=== PATIENT | male | born 1965 | race Caucasian/White ===

== ENCOUNTER 2017-01-17 07:14 | Outpatient (CLI) | payer OTHER ==
[2017-01-17 11:19] LABS: BASOPHILS % (AUTO) 0.3 %; EOSINOPHILS # (AUTO) 0.2 10^3/uL (0.0-0.7); EOSINOPHILS % (AUTO) 2.4 %; HCT - HEMATOCRIT 46.7 % (42.0-52.0); HGB - HEMOGLOBIN 16.3 g/dL (14.0-18.0); LYMPHOCYTES # (AUTO) 2.3 10^3/uL (1.5-3.5); MEAN CORPUSCULAR HEMOGLOBIN 34.4 pg (27.0-31.0); MEAN CORPUSCULAR HGB CONC 34.9 g/dL (32.0-36.0); MEAN CORPUSCULAR VOLUME 98.8 fL (80.0-94.0); MEAN PLATELET VOLUME 9.6 fL (7.4-11.4); MONOCYTES # (AUTO) 0.7 10^3/uL (0.0-1.0); MONOCYTES % (AUTO) 8.4 %; NEUTROPHILS # (AUTO) 5.2 10^3/uL (1.5-6.6); NEUTROPHILS % (AUTO) 61.9 %; NUCLEATED RED BLOOD CELLS AUTO 0.2 /100WBC; RED BLOOD COUNT 4.73 10^6/uL (4.70-6.10); RED CELL DISTRIBUTION WIDTH 12.5 % (12.0-15.0); UNCORRECTED WHITE BLOOD COUNT 8.5 x10^3/uL; WHITE BLOOD COUNT 8.5 x10^3/uL (4.8-10.8)
[2017-01-17 11:39] LABS: HEMOGLOBIN A1C 0.67 g/dL
[2017-01-17 11:40] LABS: ALBUMIN/GLOBULIN RATIO 1.8 (1.0-2.2); BILIRUBIN,TOTAL 0.9 mg/dL (0.2-1.0); BUN - BLOOD UREA NITROGEN 10 mg/dL (6-20); CALCIUM 9.1 mg/dL (8.5-10.3); CARBON DIOXIDE - CO2 27 mmol/L (21-32); CHLORIDE 101 mmol/L (101-111); CHOL/HDL RATIO 3.6 (<5.0); CHOLESTEROL 167 mg/dL; CREATININE 0.7 mg/dL (0.6-1.2); GFR - MDRD 118 (>89); GLUCOSE 141 mg/dL (70-100); HDL CHOLESTEROL 46 mg/dL; LDL/HDL RATIO 2.1 (<3.6); POTASSIUM 3.8 mmol/L (3.5-5.0); SODIUM 136 mmol/L (135-145); TOTAL PROTEIN 7.1 g/dL (6.7-8.2); TRIGLYCERIDES 113 mg/dL; VLDL CHOLESTEROL 23 mg/dL
== END 2017-01-17 07:15 | disposition home or self-care (01) ==
LOC: LAB.F 07:14
PROVIDERS: ATTEND Physician Assistant Medical
DX: Z12.5 Encounter for screening for malignant neoplasm of prostate (principal); M10.9 Gout, unspecified; E11.9 Type 2 diabetes mellitus without complications; E78.5 Hyperlipidemia, unspecified; I10 Essential (primary) hypertension; Z72.89 Other problems related to lifestyle; Z79.899 Other long term (current) drug therapy
CPT/HCPCS: 36415; 80053; 80061; 83036; 84153; 84443; 85025; 86803

== ENCOUNTER 2017-04-10 10:52 | Day surgery (SDC) | payer OTHER ==
[2017-04-10] MEDS ORDERED: LACTATED RINGERS 1,000 ML IV ONE (11:30)
[2017-04-10] MEDS ORDERED: MIDAZOLAM 2 MG/2 ML VIAL IVP ONE (12:07)
[2017-04-10] MEDS ORDERED: fentaNYL 100 MCG/2 ML VIAL IVP ONE (12:07)
[2017-04-10 13:38] VITALS: BP 119/75
== END 2017-04-10 10:53 | disposition home or self-care (01) ==
LOC: SDS 10:52
PROVIDERS: ATTEND Surgery
PROC: 0DBE8ZX Excision of Large Intestine, Via Natural or Artificial Opening Endoscopic, Diagnostic (ICD-10-PCS; 2017-04-10)
PROC: 3E0H8GC Introduction of Other Therapeutic Substance into Lower GI, Via Natural or Artificial Opening Endoscopic (ICD-10-PCS; 2017-04-10)
PROC: 0DBE8ZX Excision of Large Intestine, Via Natural or Artificial Opening Endoscopic, Diagnostic (ICD-10-PCS; principal; 2017-04-10 12:00)
DX: Z12.11 Encounter for screening for malignant neoplasm of colon (principal); D12.4 Benign neoplasm of descending colon; D12.3 Benign neoplasm of transverse colon; D12.2 Benign neoplasm of ascending colon; K62.1 Rectal polyp; K64.8 Other hemorrhoids; Z79.82 Long term (current) use of aspirin; I10 Essential (primary) hypertension; F17.200 Nicotine dependence, unspecified, uncomplicated
CPT/HCPCS: 45380; 45381; 45385; J7120

== ENCOUNTER 2018-08-23 07:09 | Outpatient (CLI) | payer OTHER ==
[2018-08-23 11:10] LABS: BASOPHILS % (AUTO) 0.5 %; EOSINOPHILS # (AUTO) 0.2 10^3/uL (0.0-0.7); EOSINOPHILS % (AUTO) 3.5 %; HGB - HEMOGLOBIN 15.3 g/dL (14.0-18.0); LYMPHOCYTES # (AUTO) 1.8 10^3/uL (1.5-3.5); MEAN CORPUSCULAR HEMOGLOBIN 33.8 pg (27.0-31.0); MEAN CORPUSCULAR HGB CONC 34.1 g/dL (32.0-36.0); MEAN CORPUSCULAR VOLUME 99.2 fL (80.0-94.0); MEAN PLATELET VOLUME 9.4 fL (7.4-11.4); MONOCYTES # (AUTO) 0.6 10^3/uL (0.0-1.0); MONOCYTES % (AUTO) 9.9 %; NEUTROPHILS # (AUTO) 3.2 10^3/uL (1.5-6.6); NEUTROPHILS % (AUTO) 55.1 %; PLT - PLATELET COUNT 158 10^3/uL (130-450); RED BLOOD COUNT 4.53 10^6/uL (4.70-6.10); RED CELL DISTRIBUTION WIDTH 13.1 % (12.0-15.0); WHITE BLOOD COUNT 5.8 x10^3/uL (4.8-10.8)
[2018-08-23 11:40] LABS: ALBUMIN/GLOBULIN RATIO 1.4 (1.0-2.2); ALKALINE PHOSPHATASE 45 IU/L (42-121); ALT ALANINE AMINOTRANSFERASE 39 IU/L (10-60); AST ASPARTATE AMINOTRANSFERASE 22 IU/L (10-42); BILIRUBIN,TOTAL 0.6 mg/dL (0.2-1.0); BUN - BLOOD UREA NITROGEN 12 mg/dL (6-20); CARBON DIOXIDE - CO2 28 mmol/L (21-32); CHLORIDE 105 mmol/L (101-111); CHOL/HDL RATIO 3.7 (<5.0); CHOLESTEROL 154 mg/dL; CREATININE 0.6 mg/dL (0.6-1.2); GFR - MDRD 140 (>89); GLUCOSE 133 mg/dL (70-100); HDL CHOLESTEROL 42 mg/dL; LDL CHOLESTEROL,CALCULATED 97 mg/dL; LDL/HDL RATIO 2.3 (<3.6); SODIUM 141 mmol/L (135-145); TOTAL PROTEIN 6.8 g/dL (6.7-8.2); VLDL CHOLESTEROL 15 mg/dL
[2018-08-23 11:42] LABS: PSA TOTAL 0.545 ng/mL (0.000-2.000)
[2018-08-23 11:45] LABS: FREE T3 3.64 pg/mL (2.5-3.9)
[2018-08-23 11:46] LABS: THYROID STIMULATING HORMONE 1.79 uIU/mL (0.34-5.60)
[2018-08-23 11:48] LABS: FREE T4 (FREE THYROXINE) 0.81 ng/dL (0.58-1.64)
[2018-08-23 12:01] LABS: CRP - C-REACTIVE PROTEIN < 1.0 mg/dL (0-1.0)
[2018-08-23 12:05] LABS: HB2 TOTAL 16.8 g/dL; HEMOGLOBIN A1C 0.64 g/dL; HEMOGLOBIN A1C % 5.6 % (4.6-6.2)
[2018-08-24 10:06] LABS: HOMOCYSTEINE 8.7 umol/L (<11.4)
== END 2018-08-23 07:10 | disposition home or self-care (01) ==
LOC: LAB.F 07:09
PROVIDERS: ATTEND Naturopath
DX: Z00.01 Encounter for general adult medical examination with abnormal findings (principal); Z12.5 Encounter for screening for malignant neoplasm of prostate; Z13.6 Encounter for screening for cardiovascular disorders; Z13.21 Encounter for screening for nutritional disorder; Z13.0 Encounter for screening for diseases of the blood and blood-forming organs and certain disorders involving the immune mechanism; Z13.220 Encounter for screening for lipoid disorders; Z13.1 Encounter for screening for diabetes mellitus; Z13.228 Encounter for screening for other metabolic disorders; Z13.29 Encounter for screening for other suspected endocrine disorder
CPT/HCPCS: 36415; 80053; 80061; 82306; 82670; 83036; 83090; 83721; 84153; 84403; 84439; 84443; 84481; 85025; 86140

== ENCOUNTER 2018-12-29 07:32 | Emergency (ER) | payer OTHER ==
--- NOTE | 2018-12-29 07:44 | ED Physician Documentation ---
PD HPI HEENT - Stated complaint Stated Complaint: TOOTH PX/SORE THROAT - History obtained from History obtained from: Patient - History of Present Illness Timing - onset: Yesterday Timing - details: Abrupt onset, Still present (worse today) Location: Tooth (left lower first molar area) Associated symptoms: Facial swelling (left mandible area). No: Fever Similar symptoms before: Has not had sx before Review of Systems Constitutional: denies: Fever, Chills, Myalgias Nose: denies: Rhinorrhea / runny nose, Congestion Throat: reports: Dental pain / toothache. denies: Sore throat PD PAST MEDICAL HISTORY - Past Medical History Cardiovascular: Hypertension, High cholesterol GI: GERD, GI bleed, Colon polyps, Hemorrhoids : Nocturia Musculoskeletal: Gout - Past Surgical History Past Surgical History: No - Present Medications Home Medications: Ambulatory Orders Medication Instructions Recorded Confirmed Allopurinol 100 mg PO ONCEDAILY 12/21/12 04/10/17 Amlodipine Besylate 10 mg PO DAILY 12/21/12 04/10/17 Carvedilol [Coreg] 12.5 mg PO BID 12/21/12 04/10/17 Hctz 25 mg PO DAILY 12/21/12 04/10/17 Losartan [Cozaar] 100 mg PO DAILY 12/21/12 04/10/17 Aspirin 81 mg PO 04/10/17 Clindamycin HCl [Clindamycin 300MG 300 mg PO TID #21 capsule 12/29/18 CAP] Naproxen 500 mg PO BID #20 tablet 12/29/18 Oxycodone HCl/Acetaminophen 1 each PO Q6H PRN #18 tablet 12/29/18 [Percocet 5-325 mg Tablet] - Allergies Allergies/Adverse Reactions: Allergies Allergy/AdvReac Type Severity Reaction Status Date / Time lisinopril AdvReac Intermediate Respiratory Verified 12/29/18 07:48 - Social History Does the pt smoke?: Yes Smoking Status: Current every day smoker Does the pt drink ETOH?: Yes Does the pt have substance abuse?: No - Immunizations Immunizations are current?: Yes - POLST Patient has POLST: No PD ED PE NORMAL - Vitals Vital signs reviewed: Yes - General General: Alert and oriented X 3, No acute distress, Well developed/nourished - HEENT HEENT: Pharynx benign. No: Dentition benign (decay left lower teeth. Gum with swelling and tenderness. No fluctuance. ) - Neck Neck: Supple, no meningeal sign, No adenopathy - Cardiac Cardiac: RRR, No murmur - Respiratory Respiratory: Clear bilaterally Results - Vitals Vitals: Vital Signs - 24 hr 12/29/18 07:46 Temperature 37 C Heart Rate 91 Respiratory 20 Rate Blood Pressure 174/114 H O2 Saturation 97 Oxygen O2 Source Room air PD MEDICAL DECISION MAKING - ED course Complexity details: considered differential, d/w patient Departure - Departure Disposition: Home, Self Care Clinical Impression: Dental infection Condition: Stable Record reviewed to determine appropriate education?: Yes Instructions: ED Abscess Dental Prescriptions: Clindamycin HCl [Clindamycin 300MG CAP] 300 mg PO TID #21 capsule Naproxen 500 mg PO BID #20 tablet Oxycodone HCl/Acetaminophen [Percocet 5-325 mg Tablet] 1 each PO Q6H PRN #18 tablet PRN Reason: pain Comments: Rinse with antiseptic mouthwash 2-3 times a day. Use of anti-inflammatories such as naproxen twice daily for the next week to 10 days. Add Tylenol or Percocet if needed for pain. Clindamycin antibiotic as directed for a week. Follow-up with your dentist next week. Discharge Date/Time: 12/29/18 08:06
[2018-12-29 07:48] VITALS: BP 174/114
[2018-12-29] MEDS ORDERED: CLINDAMYCIN 150 MG CAPSULE PO STA (07:54)
[2018-12-29] MEDS ORDERED: oxyCODONE 5 MG TABLET PO STA (07:54)
== END 2018-12-29 08:06 | disposition home or self-care (01) ==
LOC: ED 07:32
DX: K04.7 Periapical abscess without sinus (principal); I10 Essential (primary) hypertension; F17.200 Nicotine dependence, unspecified, uncomplicated
CPT/HCPCS: 99283; 99284; A9270

== ENCOUNTER 2019-01-01 09:22 | Emergency (ER) | payer OTHER ==
[2019-01-01] MEDS ORDERED: SODIUM CHLORIDE 0.9% 1,000 ML IV ONE (10:27)
[2019-01-01] MEDS ORDERED: DEXAMETHASONE 10 MG/ML VIAL IVP STA (10:27)
[2019-01-01] MEDS ORDERED: cefTRIAXone 1 GM VIAL IVP STA (10:27)
[2019-01-01] MEDS ORDERED: IOVERSOL 320 100 ML VIAL IVP ONE ×2 (11:05→11:39)
[2019-01-01 11:12] LABS: ALBUMIN 3.8 g/dL (3.2-5.5); ALBUMIN/GLOBULIN RATIO 1.2 (1.0-2.2); BILIRUBIN,TOTAL 0.8 mg/dL (0.2-1.0); CALCIUM 8.7 mg/dL (8.5-10.3); CREATININE 0.7 mg/dL (0.6-1.2); TOTAL PROTEIN 6.9 g/dL (6.7-8.2)
--- NOTE | 2019-01-01 12:24 | CT Report ---
Reason: dental infection left lower; swelling submand Procedure Date: 01/01/2019 Accession Number: [id number] / [id number] Procedure: CT - SOFT TISSUE NECK W CPT Code: FULL RESULT: EXAM: CT SOFT TISSUE NECK WITH CONTRAST. EXAM DATE: 01/01/2019 11:38 AM. HISTORY: Dental infection. Submandibular space swelling. COMPARISONS: None. TECHNIQUE: Routine soft tissue neck CT protocol. Reconstructions: Coronal and sagittal. IV contrast: 80 mL Optiray 320. In accordance with CT protocol optimization, one or more of the following dose reduction techniques were utilized for this exam: automated exposure control, adjustment of mA and/or KV based on patient size, or use of iterative reconstructive technique. FINDINGS: In the left upper neck and lower face anterior to the left submandibular space there is generally superficial stranding, swelling and edema with a few mildly prominent intermixed lymph nodes. There is no evidence for focal abscess-like fluid collection. The submandibular glands are symmetric and unremarkable. Unremarkable appearing parotid glands and thyroid gland. Subtle asymmetric soft tissue fullness in the region of the left lateral oropharynx, in the region of the left palatine tonsil. This is nonspecific. An acute inflammatory process is not clearly ruled out. There is no evidence for focal enhancing tumor mass in this location. No other focal enhancing mass or acute inflammatory process of the pharynx or larynx. Asymmetric hypopharynx, aerated on the right but not aerated on the left. Significance is uncertain but doubtful. No evidence for asymmetric focal enhancing mass. Unremarkable appearance of the adjacent larynx. Symmetric vocal cords. Normal epiglottis. No retropharyngeal or parapharyngeal fluid collection. No acute paranasal sinus or mastoid fluid opacification. No focal orbital mass or acute soft tissue inflammatory orbital process. Clear lung apices as far as partially visualized. Mild to moderate chronic multilevel hypertrophic degenerative cervical spinal spondylosis. Cervical carotid artery bifurcation atherosclerotic calcifications. Patent bilateral internal jugular veins. IMPRESSION: 1. Anterior to the left and submandibular space there is superficial swelling, stranding and edema suggestive of cellulitis without evidence for abscess. 2. Mild cervical lymph node prominence, likely reactive. 3. Mild asymmetric fullness of the soft tissues in the region of the left palatine tonsil. This may be incidental anatomic variation. Acute left lateral pharyngitis/tonsillitis is less likely but not entirely ruled out. 4. Unremarkable appearance of the major salivary glands and thyroid gland. 5. Nonspecific asymmetry of the hypopharynx, effaced on the left and aerated on the right but without clearly defined accompanying inflammatory process or mass. This may be incidental anatomic variation. RADIA
--- NOTE | 2019-01-01 13:14 | ED Physician Documentation ---
PD HPI HEENT - Stated complaint Stated Complaint: L SIDE MOUTH PX - Chief complaint Chief Complaint: Heent - History obtained from History obtained from: Patient - History of Present Illness Timing - onset: How many days ago (few) Timing - duration: Days (few) Timing - details: Gradual onset, Still present (he had dental pain and swelling and then swelling left mandible and submandibular area and feeling toward back of throat. On abx for 2 days with only mild improvement.) Location: Throat, Tooth (saw dentist yesterday and being referred to oral surgeon for root canal.) Associated symptoms: Swollen nodes, Facial swelling. No: Fever, Unable to swallow (but feels some fullness with swallowing, so is only having liquids/soft food for past 2-3 days.), Headache Recently seen: Clinic (dentist yesterday with referral to oral surgeon for root canal.), Emergency Dept (2 days ago with Dx dental infection and facial cellulitis.) Review of Systems Constitutional: denies: Fever, Chills, Myalgias Nose: denies: Rhinorrhea / runny nose, Congestion Throat: reports: Dental pain / toothache, Sore throat Cardiac: denies: Chest pain / pressure Respiratory: denies: Dyspnea, Cough GI: denies: Nausea, Vomiting, Diarrhea Skin: denies: Rash PD PAST MEDICAL HISTORY - Past Medical History Cardiovascular: Hypertension, High cholesterol GI: GERD, GI bleed, Colon polyps, Hemorrhoids : Nocturia Musculoskeletal: Gout - Past Surgical History Past Surgical History: No - Present Medications Home Medications: Ambulatory Orders Medication Instructions Recorded Confirmed Allopurinol 100 mg PO ONCEDAILY 12/21/12 04/10/17 Amlodipine Besylate 10 mg PO DAILY 12/21/12 04/10/17 Carvedilol [Coreg] 12.5 mg PO BID 12/21/12 04/10/17 Hctz 25 mg PO DAILY 12/21/12 04/10/17 Losartan [Cozaar] 100 mg PO DAILY 12/21/12 04/10/17 Aspirin 81 mg PO 04/10/17 Clindamycin HCl [Clindamycin 300MG 300 mg PO TID #21 capsule 12/29/18 CAP] Naproxen 500 mg PO BID #20 tablet 12/29/18 Oxycodone HCl/Acetaminophen 1 each PO Q6H PRN #18 tablet 12/29/18 [Percocet 5-325 mg Tablet] Cephalexin [Keflex] 500 mg PO TID #15 capsule 01/01/19 dexAMETHasone [Decadron] 4 mg PO BID #10 tablet 01/01/19 - Allergies Allergies/Adverse Reactions: Allergies Allergy/AdvReac Type Severity Reaction Status Date / Time lisinopril AdvReac Intermediate Respiratory Verified 01/01/19 09:29 - Social History Does the pt smoke?: Yes Smoking Status: Current every day smoker Does the pt drink ETOH?: Yes Does the pt have substance abuse?: No - Immunizations Immunizations are current?: Yes - POLST Patient has POLST: No PD ED PE NORMAL - Vitals Vital signs reviewed: Yes - General General: Alert and oriented X 3, No acute distress, Well developed/nourished - HEENT HEENT: No: Pharynx benign (tender around lower left molar with some swelling. No fluctuance. Mild swelling lateral left posterior pharynx. Uvula without edema. ) - Neck Neck: Supple, no meningeal sign, Other (submandibular fullness similar to visit 2 days ago. ) - Cardiac Cardiac: RRR, No murmur - Respiratory Respiratory: Clear bilaterally - Derm Derm: Normal color, Warm and dry, No rash (not really red on face nor neck. Some warmth to the skin in the area. ) - Neuro Neuro: Alert and oriented X 3, No motor deficit, Normal speech (no garbling of voice) Results - Vitals Vitals: Vital Signs - 24 hr 01/01/19 01/01/19 01/01/19 09:24 12:27 12:30 Temperature 36.4 C L Heart Rate 91 80 80 Respiratory 17 18 16 Rate Blood Pressure 155/95 H 123/57 L 145/86 H O2 Saturation 95 94 95 01/01/19 01/01/19 13:15 13:17 Temperature 36.3 C L Heart Rate 75 Respiratory 17 Rate Blood Pressure 155/99 H O2 Saturation 94 Oxygen O2 Source Room air - Labs Labs: Laboratory Tests 01/01/19 10:53 Sodium 139 Potassium 3.8 Chloride 103 Carbon Dioxide 26 Anion Gap 10.0 BUN 7 Creatinine 0.7 Estimated GFR (MDRD) 117 Glucose 100 Calcium 8.7 Total Bilirubin 0.8 AST 15 ALT 24 Alkaline Phosphatase 34 L Total Protein 6.9 Albumin 3.8 Globulin 3.1 Albumin/Globulin Ratio 1.2 Lipase 23 - Rads (name of study) facial CT Radiology: Prelim report reviewed (edema without abscess left mandibular and submandibular area. ), See rad report PD MEDICAL DECISION MAKING - ED course Complexity details: reviewed results (no abscess. Left sided soft tissue edema. No notable encroachment on airway. ), re-evaluated patient (he is feeling swelling has gone down in ER with abx/steroids IV.), considered differential (edema left submandibular area and some left posterior pharynx seems out of proportion to the amount of swelling around the tooth, so will get CT to eval for abscess. Also consider concommitant med effect (on ARB). ), d/w patient Departure - Departure Disposition: 01 Home, Self Care Clinical Impression: Dental infection, Facial edema Condition: Stable Record reviewed to determine appropriate education?: Yes Instructions: ED Angioedema Prescriptions: Cephalexin [Keflex] 500 mg PO TID #15 capsule dexAMETHasone [Decadron] 4 mg PO BID #10 tablet Comments: Your CT scan did not show any signs of abscesses. There is swelling of the soft tissue in the area. This presumably is related to the infection from the tooth. However sometimes you can get inappropriate swelling related to blood pressure medicines. For now I would have you hold your losartan blood pressure medicine for the next couple weeks. Treat with the dental problem and in assumedly the swelling will go down. At that point you could resume the losartan and see if there is any swelling return that might account for it to be from that. If there is not then the medicine was unrelated and it was all just infection. Continue your prior antibiotic. Add cephalexin and Decadron as directed. Recheck if still not improving over the next couple of days. Follow-up with your oral surgeon as planned. Discharge Date/Time: 01/01/19 13:26
[2019-01-01 13:16] VITALS: BP 155/99
== END 2019-01-01 13:26 | disposition home or self-care (01) ==
LOC: ED 09:22
DX: K04.7 Periapical abscess without sinus (principal); R60.0 Localized edema; I10 Essential (primary) hypertension; F17.200 Nicotine dependence, unspecified, uncomplicated; Z79.82 Long term (current) use of aspirin
CPT/HCPCS: 36415; 70491; 80053; 83690; 96361; 96374; 99284; Q9967

== ENCOUNTER 2019-03-17 09:02 | Outpatient (CLI) | payer OTHER ==
[2019-03-17 17:21] LABS: BASOPHILS % (AUTO) 0.4 %; EOSINOPHILS # (AUTO) 0.2 10^3/uL (0.0-0.7); EOSINOPHILS % (AUTO) 3.4 %; HGB - HEMOGLOBIN 16.4 g/dL (14.0-18.0); LYMPHOCYTES # (AUTO) 1.9 10^3/uL (1.5-3.5); LYMPHOCYTES % (AUTO) 34.4 %; MEAN CORPUSCULAR HEMOGLOBIN 34.4 pg (27.0-31.0); MEAN PLATELET VOLUME 11.2 fL (7.4-11.4); MONOCYTES # (AUTO) 0.6 10^3/uL (0.0-1.0); MONOCYTES % (AUTO) 10.3 %; NEUTROPHILS # (AUTO) 2.9 10^3/uL (1.5-6.6); NEUTROPHILS % (AUTO) 51.1 %; PLT - PLATELET COUNT 181 10^3/uL (130-450); RED BLOOD COUNT 4.77 10^6/uL (4.70-6.10); RED CELL DISTRIBUTION WIDTH 12.4 % (12.0-15.0); WHITE BLOOD COUNT 5.6 x10^3/uL (4.8-10.8)
[2019-03-17 17:37] LABS: HB2 TOTAL 16.6 g/dL; HEMOGLOBIN A1C 0.65 g/dL; HEMOGLOBIN A1C % 5.7 % (4.6-6.2)
[2019-03-17 17:48] LABS: CHOL/HDL RATIO 4.1 (<5.0); CHOLESTEROL 206 mg/dL; GLUCOSE 133 mg/dL (70-100); HDL CHOLESTEROL 50 mg/dL; LDL CHOLESTEROL,CALCULATED 142 mg/dL; LDL/HDL RATIO 2.8 (<3.6); VLDL CHOLESTEROL 14 mg/dL
== END 2019-03-17 09:03 | disposition home or self-care (01) ==
LOC: LAB.S 09:02
PROVIDERS: ATTEND Naprapath
DX: Z13.1 Encounter for screening for diabetes mellitus (principal); Z13.21 Encounter for screening for nutritional disorder; Z13.220 Encounter for screening for lipoid disorders; Z13.0 Encounter for screening for diseases of the blood and blood-forming organs and certain disorders involving the immune mechanism; E55.9 Vitamin D deficiency, unspecified; Z13.820 Encounter for screening for osteoporosis
CPT/HCPCS: 36415; 80061; 82306; 82947; 83036; 83721; 85025

== ENCOUNTER 2021-09-29 08:00 | Outpatient (CLI) | payer OTHER ==
--- NOTE | 2021-09-29 16:09 | XRAY Report ---
PROCEDURE: Chest 2 View X-Ray INDICATIONS: COVID+ TECHNIQUE: 2 view(s) of the chest. COMPARISON: None. FINDINGS: Surgical changes and devices: None. Lungs and pleura: No pleural effusions or pneumothorax. Lungs are clear. Mediastinum: Mediastinal contours are normal. Heart size is normal. Bones and chest wall: No suspicious bony abnormalities. Soft tissues appear unremarkable. IMPRESSION: No acute cardiopulmonary disease process. Reviewed by: Parul Pappas MD, PhD on 09/29/2021 4:08 PM PDT Approved by: Parul Pappas MD, PhD on 09/29/2021 4:08 PM PDT Station ID: [id number]
== END 2021-09-29 23:59 | disposition home or self-care (01) ==
LOC: DI.S 08:00
PROVIDERS: ATTEND Physician Assistant
DX: U07.1 COVID-19 (principal)